=== PATIENT | male | born 1995 | race Caucasian/White ===

== ENCOUNTER 2018-11-25 11:25 | Emergency (ER) | payer SELFPAY ==
[2018-11-25 11:26] VITALS: BP 147/91; PULSE 71; RESP 18; TEMP 36.4; O2SAT 100; BMI 20.1
--- NOTE | 2018-11-25 12:07 | ED.VIS.GEN ---
History of Present Illness Chief Complaint: Eye Problem Informant: Patient, Family Onset: Yesterday Current Severity: Mild Narrative: The patient presents with swelling involving the right upper lid that began really Monday indicates he was weed whacking he indicates something irritated the right upper brow he thought it may be a piece of debris had struck his face he does not believe he was struck by an insect he had almost immediate swelling of the area soft type of edema nothing involve the eye itself his vision is been normal nothing to the left side of the face or left eye, when his mother noticed the swelling involving the right brow she was concerned this may be related to an ingrown hair involving the brow so she plucked out a few pieces of brow hair that did not help, the swelling persisted into this morning and he came in for evaluation so he has edema involving the brow and the upper lid he has no complaints of any kind related to his iron nothing got in his eye he was wearing his normal glasses not eye protective glasses when this all occurred and again he does not believe he was stung by an insect of any kind Past Medical History - Allergies and Home Meds Allergies/Adverse Reactions: Allergies No Known Allergies Allergy (Verified 11/25/18 11:27) Primary Care Physician: NOT,DEFINED [Primary Care Provider] - Past Medical History: None Smoking Status: Current every day smoker Review of Systems General: Denies: Chills, Fever, Sweats Eyes: Reports: - - Just the swelling involving the right brow. Denies: Visual changes - bilaterally, Diplopia ENT: Denies: Rhinorrhea, Sore throat Cardiovascular: Denies: Chest pain, Palpitations Respiratory: Denies: Dyspnea, Cough, Dyspnea on exertion Gastrointestinal: Denies: Abdominal pain, Nausea, Vomiting, Diarrhea, Melena, Hematochezia Genitourinary: Denies: Dysuria, Hematuria, Frequency Musculoskeletal: Denies: Back pain, Extremity Pain Skin: Denies: Rash, Wounds Neurological: Denies: Headache, Weakness, Numbness Physical Exam Vital Signs/Narrative: Vital Signs Temp Pulse Resp BP Pulse Ox 11/25/18 11:26 97.6 F L 71 18 147/91 H 100 General: Well nourished, Well developed, No Acute Distress Head: Normocephalic, Atraumatic Eyes: Perrl, EOMI, - - He has focal edema involving the right brow it goes slightly into the right upper lid to where it makes it hard for him to open and close the right upper lid, the lid mechanism is intact I feel no foreign body to the brow where the mother has plucked out some of the brow hairs this area is appearing but there is no warmth there is no swelling there is no signs of active infection fullness fluctuance negative, this appears more allergic as it has a very soft doughy nontender consistency the eye exam is unremarkable pupils are equal round reactive full range of motion anterior chamber normal vision normal no complaints of any type of eye issues the HEENT exam is otherwise negative as is his general medical exam. Negative for: Pale conjunctiva, Scleral icterus ENT: Moist mucous membranes, No rhinorrhea Neck: Supple, Nontender Cardiovascular: Regular rate, Regular rhythm, No murmurs Respiratory: No distress, CTA bilaterally, Chest nontender Abdomen: Soft, Nontender, Nondistended, Normal bowel sounds Back: Nontender, Normal Inspection Extremities: Nontender, No edema Skin: Normal color, No rash Neurological: Alert, Oriented x3, Cranial nerves II-XII grossly intact, Normal Strength, Normal Sensation Psychological: Normal affect, Normal Mood Diagnostic/Tx/Re-eval - Medical Decision Making Long conversation with the patient his mother there is certainly a possibility of local trauma by history allergic infection etc. 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
== END 2018-11-25 12:29 | disposition home or self-care (01) ==
PROVIDERS: Emergency Provider Emergency Medicine
DX: H02.841 Edema of right upper eyelid (principal); F17.200 Nicotine dependence, unspecified, uncomplicated
CPT/HCPCS: 90471; 99283